=== PATIENT | female | born 1965 | race Caucasian/White ===

== ENCOUNTER 2018-11-15 09:06 | Day surgery (SDC) | payer OTHER ==
[2018-11-15] MEDS: TRANEXAMIC ACID 1GM/100ML(PMX) 100 ML IVPB (06:30)
[2018-11-15] MEDS: CEFAZOLIN 2 GM/50 ML (PMX) 50 ML IVPB (06:30)
[~2018-11-15 09:06] MED LIST: BUPIVACAINE 0.5% (SDV) 30 ML, morphine SULFATE (PF) 8 MG, EPINEPHrine 0.3 MG, KETOROLAC... IRR
[2018-11-15] MEDS: GABAPENTIN 300 MG CAP PO (09:45)
[2018-11-15] MEDS: DEXAMETHASONE 2 MG TAB PO (09:45)
[2018-11-15] MEDS ORDERED: MIDAZOLAM 1 MG/ML 2 ML INJ (10:48)
[2018-11-15] MEDS ORDERED: FENTAnyl 50 MCG/ML VIAL ×2 (10:48→10:58)
[2018-11-15] MEDS ORDERED: PROPOFOL 20 ML (11:55)
[2018-11-15] MEDS ORDERED: LIDOCAINE 2% (SDV) 5 ML INJ (11:55)
[2018-11-15] MEDS ORDERED: ONDANSETRON 4 MG INJ (11:56)
[2018-11-15] MEDS ORDERED: CEFAZOLIN 1 GM INJ (11:56)
[2018-11-15] MEDS ORDERED: OXYCODONE/ACETAMINOPHEN (5/325) TAB PO ×2 (12:30)
[2018-11-15] MEDS ORDERED: LABETALOL HCL 20MG INJ IV (12:30)
[2018-11-15] MEDS ORDERED: DIPHENHYDRAMINE 50 MG INJ IV (12:30)
[2018-11-15] MEDS ORDERED: KETOROLAC 30 MG INJ IV (12:30)
[2018-11-15] MEDS ORDERED: FENTAnyl 50 MCG/ML VIAL IV (12:30)
[2018-11-15] MEDS ORDERED: HYDROmorphONE 1 MG/5 ML IV SYRINGE IV ×2 (12:30)
[2018-11-15] MEDS ORDERED: MEPERIDINE 25 MG INJ IV (12:30)
[2018-11-15] MEDS: ONDANSETRON 4 MG INJ IV (13:54)
[2018-11-15] MEDS: METOCLOPRAMIDE 10 MG INJ IV (14:44)
== END 2018-11-15 16:30 | disposition home or self-care (01) ==
LOC: SDS 09:06
DX: M70.61 Trochanteric bursitis, right hip (principal); S73.101D Unspecified sprain of right hip, subsequent encounter; X58.XXXD Exposure to other specified factors, subsequent encounter
CPT/HCPCS: 27062; 73530